=== PATIENT | female | born 1945 | race Caucasian/White ===

== ENCOUNTER → 2017-05-17 | Outpatient (CLI) | payer OTHER | END | disposition home or self-care (01) | LOC: OIH 13:08 | PROVIDERS: ATTEND Family Medicine | DX: I10 Essential (primary) hypertension (principal) | CPT/HCPCS: 71046 ==

== ENCOUNTER → 2017-06-03 | Outpatient (CLI) | payer OTHER | END | disposition home or self-care (01) | LOC: RAH 13:10 | PROVIDERS: ATTEND Family Medicine | DX: Z12.31 Encounter for screening mammogram for malignant neoplasm of breast (principal) | CPT/HCPCS: 77067 ==

== ENCOUNTER → 2018-05-09 | Outpatient (CLI) | payer OTHER | END | disposition home or self-care (01) | LOC: OIH 14:58 | PROVIDERS: ATTEND Family Medicine | DX: I10 Essential (primary) hypertension (principal); I70.0 Atherosclerosis of aorta | CPT/HCPCS: 71046 ==

== ENCOUNTER → 2018-05-11 | Outpatient (CLI) | payer OTHER ==
[~2018-05-11] MED LIST: IOHEXOL-350 50ML VIAL IV ONE
== END | disposition home or self-care (01) ==
LOC: RAH 13:48
PROVIDERS: ATTEND Otolaryngology Plastic Surgery within the Head & Neck
DX: H69.81 Other specified disorders of Eustachian tube, right ear (principal); H93.A1 Pulsatile tinnitus, right ear
CPT/HCPCS: 70482; Q9967

== ENCOUNTER → 2018-05-17 | Outpatient (CLI) | payer OTHER | END | disposition home or self-care (01) | LOC: RAH 09:49 | PROVIDERS: ATTEND Family Medicine | DX: I73.9 Peripheral vascular disease, unspecified (principal); I70.90 Unspecified atherosclerosis | CPT/HCPCS: 93925 ==

== ENCOUNTER → 2018-06-05 | Outpatient (CLI) | payer OTHER | END | disposition home or self-care (01) | LOC: RAH 10:14 | PROVIDERS: ATTEND Family Medicine | DX: Z12.31 Encounter for screening mammogram for malignant neoplasm of breast (principal) | CPT/HCPCS: 77067 ==

== ENCOUNTER → 2019-04-09 | Outpatient (CLI) | payer OTHER | END | disposition home or self-care (01) | LOC: OIH 11:22 | PROVIDERS: ATTEND Family Medicine | DX: I10 Essential (primary) hypertension (principal) | CPT/HCPCS: 71046 ==

== ENCOUNTER → 2019-04-20 | Outpatient (CLI) | payer OTHER | END | disposition home or self-care (01) | LOC: RAH 13:58 | PROVIDERS: ATTEND Family Medicine | DX: J43.2 Centrilobular emphysema (principal) | CPT/HCPCS: 71260; Q9967 ==

== ENCOUNTER 2019-06-14 09:30 | Inpatient (IN) | payer OTHER ==
[~2019-06-14] VITALS: Ht 167.6 cm; Wt 55.9 kg
[2019-06-14] VITALS (19 sets, daily range): BP systolic 110–160; BP diastolic 58–79
[~2019-06-14 09:30] MED LIST changes: +ALPR0.5T PO; +AMLO-257 PO; +ATOR40TA71 PO; +CALC600T15 PO; +FLUT1AER IH; -IOHEXOL-350 50ML VIAL IV ONE; +LORA10TA7 PO; +LYSI500T11 PO; +MULT-1367 PO
[2019-06-14] MEDS: CEFUROXIME SODIUM 1.5 GM VIAL IVP SCH ×2 (10:00→12:03)
[2019-06-14 10:18] LABS: BASOPHILS % (AUTO) 0.8 % (0.0-5.0); EOSINOPHILS % (AUTO) 1.3 % (0.0-8.0); HEMATOCRIT 41.4 % (36-48); LYMPHOCYTES % (AUTO) 23.3 % (21.0-51.0); MEAN CORPUSCULAR HEMOGLOBIN 30.3 pg (27.0-33.0); MEAN CORPUSCULAR HGB CONC 32.9 g/dL (32.0-36.0); MEAN CORPUSCULAR VOLUME 92.2 fL (79-99); MONOCYTES % (AUTO) 10.9 % (3.0-13.0); NEUTROPHILS % (AUTO) 63.6 % (40.0-77.0); PLATELET COUNT (AUTO) 209 K/uL (130-400); RED BLOOD CELL COUNT(AUTO) 4.49 MIL/uL (4.00-5.50); RED CELL DISTRIBUTION WIDTH 13.4 % (11.0-15.5); WHITE BLOOD COUNT (AUTO) 7.2 K/uL (4.8-10.8)
[2019-06-14 10:26] LABS: CREATININE 0.8 mg/dL (0.5-1.5); HEMOGLOBIN A1C 5.3 % (4.0-6.0); POTASSIUM 4.1 mmol/L (3.5-5.1)
[2019-06-14 10:29] LABS: INR 0.89 (0.85-1.15); PARTIAL THROMBOPLASTIN TIME 24.7 SEC (26.3-35.5); PROTHROMBIN TIME 9.7 SEC (9.6-11.6)
[2019-06-14 10:33] LABS: ALBUMIN 3.8 g/dL (3.5-5.0); BILIRUBIN,TOTAL 0.5 mg/dL (0.2-1.0); TOTAL PROTEIN, SERUM 7.1 g/dL (6.0-8.3)
[2019-06-14] MEDS ORDERED: GLYCOPYRROLATE 1 MG/5 ML SYRINGE ONE ×2 (11:00→13:15)
[2019-06-14] MEDS ORDERED: ONDANSETRON HCL 4 MG/2 ML VIAL ONE (11:00)
[2019-06-14] MEDS ORDERED: DEXAMETHASONE SOD PHOSPHATE 10MG/ML 1ML VIAL ONE (11:00)
[2019-06-14] MEDS ORDERED: LIDOCAINE PF 2% 5ML ABBOJECT ONE (11:00)
[2019-06-14] MEDS ORDERED: MIDAZOLAM HCL 1 MG/ML 2ML VIAL ONE (11:01)
[2019-06-14] MEDS ORDERED: FENTANYL CITRATE PF 50 MCG/1 ML 2ML VIAL ONE (11:01)
[2019-06-14] MEDS ORDERED: NEOSTIGMINE 5MG/5ML SYR IV ONE (11:01)
[2019-06-14] MEDS ORDERED: ROCURONIUM 10MG/1ML SYR 10 MG/ML ML ONE (11:01)
[2019-06-14] MEDS ORDERED: PROPOFOL 10 MG/ML 20ML VIAL IV ONE (11:01)
[2019-06-14] MEDS ORDERED: SODIUM CHLORIDE 0.9% 1000ML 1,000 ML IV ONE (11:22)
[2019-06-14] MEDS ORDERED: SODIUM CHLORIDE 0.9% 10 ML VIAL ONE (11:22)
[2019-06-14] MEDS ORDERED: CEFAZOLIN SODIUM 1 GM VIAL ONE (12:02)
[2019-06-14] MEDS ORDERED: ROPIVACAINE 0.5% 5MG/ML 30ML IJ ONE (12:02)
[2019-06-14] MEDS ORDERED: EPHEDRINE SULFATE 50 MG/ML AMPULE ONE (12:32)
[2019-06-14] MEDS ORDERED: LORATADINE 10 MG TABLET PO PRN (12:45)
[2019-06-14] MEDS ORDERED: Q-PUMP 1 EACH IRRIG SCH (13:30)
[2019-06-14] MEDS ORDERED: MEPERIDINE-PF 25 MG/ML SYG ONE ×2 (13:51→14:01)
[2019-06-14] MEDS: TRAMADOL HCL 50 MG TABLET PO PRN ×2 (17:22→23:52)
[2019-06-14] MEDS: BUDESONIDE 0.5 MG/2 ML INH IH SCH (18:35)
[2019-06-14] MEDS: ALBUTEROL SULFATE 0.083% 2.5 MG/3 ML INH IH SCH ×2 (18:35→23:58)
--- NOTE | 2019-06-14 20:00 | NUR ---
STATUS PT AAOX3 LYING IN BED. BREATHING REGULAR AND UNLABORED ON 2 L NC. PATIENT SPO2 99%. NSR. BP WNL. ASSESSMENT COMPLETED SINGLE CHEST TUBE TO LEFT SIDE. SANGUINEOUS DRAINAGE NOTED. SUCTION INITIATED. PAIN PUMP NOTED. SMALL INTERMITTENT AIR LEAK NOTED ON EXHALATION. NO CREPITUS PALPATED. NO ACUTE SIGNS OR SYMPTOMS OF DISTRESS NOTED. CALL LIGHT IN REACH
[2019-06-14] MEDS: ATORVASTATIN CALCIUM 40 MG TABLET PO SCH (21:01)
[2019-06-14] MEDS: CEFAZOLIN SODIUM 1 GM VIAL IVP SCH (21:01)
[2019-06-14] MEDS: ONDANSETRON HCL 4 MG/2 ML VIAL IVP PRN (21:52)
[2019-06-15] VITALS (9 sets, daily range): BP systolic 101–192; BP diastolic 59–90
[2019-06-15] MEDS: ONDANSETRON HCL 4 MG/2 ML VIAL IVP PRN ×2 (02:55→11:58)
[2019-06-15 04:01] LABS: HEMATOCRIT 38.3 % (36-48); MEAN CORPUSCULAR HEMOGLOBIN 30.6 pg (27.0-33.0); MEAN CORPUSCULAR HGB CONC 33.2 g/dL (32.0-36.0); MEAN CORPUSCULAR VOLUME 92.3 fL (79-99); PLATELET COUNT (AUTO) 208 K/uL (130-400); RED BLOOD CELL COUNT(AUTO) 4.15 MIL/uL (4.00-5.50); RED CELL DISTRIBUTION WIDTH 13.3 % (11.0-15.5); WHITE BLOOD COUNT (AUTO) 11.8 K/uL (4.8-10.8)
[2019-06-15 04:14] LABS: CREATININE 0.6 mg/dL (0.5-1.5); POTASSIUM 3.9 mmol/L (3.5-5.1)
[2019-06-15] MEDS: CEFAZOLIN SODIUM 1 GM VIAL IVP SCH ×2 (04:47→11:57)
[2019-06-15] MEDS: TRAMADOL HCL 50 MG TABLET PO PRN ×3 (05:41→21:52)
[2019-06-15] MEDS: BUDESONIDE 0.5 MG/2 ML INH IH SCH ×2 (06:24→19:57)
[2019-06-15] MEDS: ALBUTEROL SULFATE 0.083% 2.5 MG/3 ML INH IH SCH ×3 (06:24→19:40)
--- NOTE | 2019-06-15 07:30 | NUR ---
OOB TO CHAIR. ATTEMPTED TO GET PATIENT OUT OF BED TO CHAIR. ASSIST X3 WITH BRADLEY RN AND DEJON, PCP. PATIENT COMPLAINT OF DIZZINESS AND NAUSEA. PATIENT HAD CREAM COLORED EMESIS. PATIENT RETURNED TO BED, POSITIONED TO COMFORT.
--- NOTE | 2019-06-15 08:00 | NUR ---
TRANSFER REPORT GIVEN TO KARYNA SUTTON. PATIENT TRANSFERRED TO ROOM 429 VIA BED. CHEST TUBE SITE, LEVEL AND INTERMITTENT BUBBLING ON EXHALATION NOTED BY RECEIVING RN. PATIENT AAO X3 BREATHING REGULAR AND UNLABORED ON 2L NASAL CANNULA. NOS SIGNS OR SYMPTOMS OF DISTRESS NOTED. CALL LIGHT AND ROOM PHONE IN REACH. BREAKFAST PLACED ON BEDSIDE TABLE.
[2019-06-15] MEDS: LYSINE 500 MG PO SCH (09:00)
[2019-06-15] MEDS: CALCIUM CARBONATE 500 MG TABLET PO SCH (09:22)
[2019-06-15] MEDS: AMLODIPINE BESYLATE 5 MG TAB PO SCH (09:22)
[2019-06-15] MEDS: MULTIVITAMIN TABLET PO SCH (09:22)
[2019-06-15] MEDS: CEFUROXIME SODIUM 1.5 GM VIAL IVP SCH (10:12)
[2019-06-15] MEDS ORDERED: PROMETHAZINE HCL 25 MG/ML 1ML AMPULE IM PRN (12:45)
[2019-06-15] MEDS: SODIUM CHLORIDE 0.9% 1000ML 1,000 ML IV SCH (13:29)
--- NOTE | 2019-06-15 15:05 | NUR ---
INITIAL SW spoke with patient. Patient lives with spouse, Brock Chowdary, . No home services. DME: [facility]. Patient is able to complete ADL's independently and drives. PCP is Dr. Patrick Banks. Pharmacy is [facility] located on [facility]. DCP is home. Addendum: 06/15/19 at 1506 by TANIA FERNANDES SS Amended: Links added.
[2019-06-15] MEDS ORDERED: LOSARTAN 100 MG TABLET PO SCH (18:00)
--- NOTE | 2019-06-15 19:50 | NUR ---
PM Assessment Received pt with NS at 85cc/hr infusing well, chest tube connected to wall suction, Q pump in place at 10cc/hr, surgical site noted with small amount of drainage, marked, routine assessment done, plan of care discuss, aware on daily CXR, per pt c/o of inability to empty her bladder well at this time. Stated initially was able to void well but from 1500 start to have minimal urine output. Pt made aware that I will do a bladder scan depending on the outcome, then I will notify MD for a possible re-insertion of the Alvarez catheter, agreed. Pt also reminded to continue using the IS, demonstrated how to do it as pt claimed no one had told her anything about it, return demonstrated, did 750 x 10. Pt encourage to do it every hour while awake, stated she will try, aware of it's importance. Pt also made aware if no more N/V, then her diet will be progress to regular.
--- NOTE | 2019-06-15 21:10 | NUR ---
Re: Bladder scan 983 Dr. Quigley page & called back regarding problem of urinary retention, bladder scan outcome 983, order received to re-insert FC, pt notified, explained procedure, done aseptically obtain 1200 clear yellow urine.
[2019-06-15] MEDS: ATORVASTATIN CALCIUM 40 MG TABLET PO SCH (21:46)
[2019-06-16] MEDS: ALBUTEROL SULFATE 0.083% 2.5 MG/3 ML INH IH SCH ×5 (00:44→23:05)
[2019-06-16] MEDS: SODIUM CHLORIDE 0.9% 1000ML 1,000 ML IV SCH ×2 (01:36→12:17)
[2019-06-16 03:43] VITALS: BP 146/84
[2019-06-16] MEDS: BUDESONIDE 0.5 MG/2 ML INH IH SCH ×2 (06:28→18:46)
[2019-06-16 07:30] VITALS: BP 152/78
[2019-06-16] MEDS: TRAMADOL HCL 50 MG TABLET PO PRN ×2 (07:49→14:41)
[2019-06-16] MEDS: CEFUROXIME SODIUM 1.5 GM VIAL IVP SCH (09:00)
[2019-06-16] MEDS: LYSINE 500 MG PO SCH (09:00)
[2019-06-16 09:24] LABS: HEMATOCRIT 35.7 % (36-48); MEAN CORPUSCULAR HEMOGLOBIN 30.4 pg (27.0-33.0); MEAN CORPUSCULAR HGB CONC 32.8 g/dL (32.0-36.0); MEAN CORPUSCULAR VOLUME 92.7 fL (79-99); PLATELET COUNT (AUTO) 197 K/uL (130-400); RED BLOOD CELL COUNT(AUTO) 3.85 MIL/uL (4.00-5.50); RED CELL DISTRIBUTION WIDTH 13.8 % (11.0-15.5); WHITE BLOOD COUNT (AUTO) 11.8 K/uL (4.8-10.8)
[2019-06-16 09:41] LABS: CREATININE 0.7 mg/dL (0.5-1.5); POTASSIUM 3.5 mmol/L (3.5-5.1)
[2019-06-16] MEDS: LOSARTAN 100 MG TABLET PO SCH (09:41)
[2019-06-16] MEDS: CALCIUM CARBONATE 500 MG TABLET PO SCH (09:41)
[2019-06-16] MEDS: MULTIVITAMIN TABLET PO SCH (09:41)
[2019-06-16] MEDS: AMLODIPINE BESYLATE 5 MG TAB PO SCH (09:41)
[2019-06-16] MEDS ORDERED: KETOROLAC TROMETHAMINE 30MG/ML IV SCH (09:45)
--- NOTE | 2019-06-16 09:48 | NUR ---
DR BIANCHI ROUNDED ON PATIENT ORDERERS RECEIVED FOR CMP IN AM ORDERS PLACED Addendum: 06/16/19 at 4 by SEAN CASTILLO RN RN DR BIANCHI ASKED ABOUT DRESSSING CHANGE HE STATED WILL LOOK AT DRESSING CHANGE TOMORROW
[2019-06-16 11:30] VITALS: BP 140/76
--- NOTE | 2019-06-16 11:55 | NUR ---
DR GREEN ROUNDED ON PATIENT ORDERS RECEIVED FOR CMP IN AM ORDERS PLACED
[2019-06-16] MEDS: KETOROLAC TROMETHAMINE 15MG/ML IV SCH ×2 (14:39→22:56)
[2019-06-16 15:30] VITALS: BP 128/57
[2019-06-16 20:00] VITALS: BP 134/58
[2019-06-16] MEDS: ATORVASTATIN CALCIUM 40 MG TABLET PO SCH (22:44)
[2019-06-17 04:03] VITALS: BP 138/66
[2019-06-17 04:51] LABS: ALBUMIN 2.6 g/dL (3.5-5.0); BILIRUBIN,TOTAL 0.4 mg/dL (0.2-1.0); CREATININE 0.6 mg/dL (0.5-1.5); POTASSIUM 3.3 mmol/L (3.5-5.1); TOTAL PROTEIN, SERUM 5.7 g/dL (6.0-8.3)
[2019-06-17] MEDS: ALBUTEROL SULFATE 0.083% 2.5 MG/3 ML INH IH SCH ×4 (06:12→23:54)
[2019-06-17] MEDS: BUDESONIDE 0.5 MG/2 ML INH IH SCH ×2 (06:13→19:06)
[2019-06-17] MEDS: KETOROLAC TROMETHAMINE 15MG/ML IV SCH ×2 (07:09→14:05)
--- NOTE | 2019-06-17 07:49 | NUR ---
INFORMED DR. BIANCHI THAT PATIENT'S RHYTHM CHANGED TO AFIB AND NOW RVR AT 150'S. ORDERED TO START AMIODARONE DRIP.
[2019-06-17 08:00] VITALS: BP 145/78
[2019-06-17] MEDS ORDERED: AMIODARONE HCL 900 MG in DEXTROSE 5%-WATER 500 ML IV SCH (08:00)
[2019-06-17] MEDS ORDERED: POTASSIUM CHLORIDE 10% ELIXIR 20 MEQ/15 ML UDCUP PO PRN (08:00)
[2019-06-17] MEDS ORDERED: LIDOCAINE HCL-MPF 1% 2ML VIAL IV PRN (08:00)
[2019-06-17] MEDS ORDERED: AMIODARONE HCL 450 MG in DEXTROSE 5%-WATER 250 ML IV SCH (08:00)
[2019-06-17] MEDS ORDERED: AMIODARONE HCL 360 MG in DEXTROSE 5%-WATER 200 ML IV SCH (08:00)
[2019-06-17] MEDS ORDERED: POTASSIUM CHLORIDE 20MEQ/100ML 100 ML IV PRN (08:00)
[2019-06-17] MEDS: AMIODARONE HCL 150 MG in DEXTROSE 5%-WATER 100 ML IV SCH (08:17)
--- NOTE | 2019-06-17 08:17 | NUR ---
AMIODARONE PROTOCOL STARTED ORDERED. TELE CURRENTLY READS AFIB 140-150'S.
[2019-06-17] MEDS: LYSINE 500 MG PO SCH (09:00)
[2019-06-17] MEDS: AMLODIPINE BESYLATE 5 MG TAB PO SCH (09:17)
[2019-06-17] MEDS: MULTIVITAMIN TABLET PO SCH (09:17)
[2019-06-17] MEDS: LOSARTAN 100 MG TABLET PO SCH (09:17)
[2019-06-17] MEDS: CALCIUM CARBONATE 500 MG TABLET PO SCH (09:17)
--- NOTE | 2019-06-17 09:19 | NUR ---
INFORMED DR. GREEN THAT PATIENT WAS STARTED ON AMIODARONE DRIP ORDERED BY DR. BIANCHI. ORDERED ECHO AND MG LEVEL. I ALSO OBTAINED ORDER TO REPLACE MAGNESIUM IF LESS THAN 2.0
[2019-06-17] MEDS: POTASSIUM CHLORIDE 20 MEQ ERTAB PO PRN ×3 (09:33→14:03)
[2019-06-17] MEDS ORDERED: MAGNESIUM 2GM PREMIX 50ML 50 ML IV SCH (10:30)
[2019-06-17 12:00] VITALS: BP 102/57
--- NOTE | 2019-06-17 12:45 | NUR ---
NURSE SOILA. Addendum: 06/17/19 at 1246 by GERALD MCKINNON PT Amended: Links added.
[2019-06-17] MEDS: METOPROLOL TARTRATE 1 MG/ML 5ML VIAL IV SCH (13:48)
[2019-06-17 16:00] VITALS: BP 110/62
[2019-06-17] MEDS: ATORVASTATIN CALCIUM 40 MG TABLET PO SCH (20:06)
[2019-06-17] MEDS: METOPROLOL TARTRATE 25 MG TAB PO SCH (20:06)
[2019-06-17] MEDS: DOCUSATE SODIUM 100 MG CAP PO SCH (20:06)
[2019-06-17 20:37] VITALS: BP 126/70
[2019-06-17] MEDS ORDERED: LORAZEPAM 2 MG TABLET PO PRN (23:45)
[2019-06-17 23:46] VITALS: BP 150/75
[2019-06-18] MEDS: BISACODYL 5 MG TABLET.DR PO PRN (00:09)
[2019-06-18 03:54] VITALS: BP 118/51
[2019-06-18 04:06] LABS: BASOPHILS % (AUTO) 0.2 % (0.0-5.0); EOSINOPHILS % (AUTO) 1.9 % (0.0-8.0); MEAN CORPUSCULAR HEMOGLOBIN 29.7 pg (27.0-33.0); MEAN CORPUSCULAR HGB CONC 32.5 g/dL (32.0-36.0); MEAN CORPUSCULAR VOLUME 91.4 fL (79-99); MONOCYTES % (AUTO) 10.3 % (3.0-13.0); NEUTROPHILS % (AUTO) 72.2 % (40.0-77.0); PLATELET COUNT (AUTO) 184 K/uL (130-400); RED CELL DISTRIBUTION WIDTH 13.6 % (11.0-15.5); WHITE BLOOD COUNT (AUTO) 10.3 K/uL (4.8-10.8)
[2019-06-18 04:29] LABS: ALBUMIN 2.4 g/dL (3.5-5.0); BILIRUBIN,TOTAL 0.4 mg/dL (0.2-1.0); CREATININE 0.6 mg/dL (0.5-1.5); POTASSIUM 3.4 mmol/L (3.5-5.1); TOTAL PROTEIN, SERUM 5.4 g/dL (6.0-8.3)
[2019-06-18] MEDS: BUDESONIDE 0.5 MG/2 ML INH IH SCH ×2 (07:09→19:05)
[2019-06-18] MEDS: ALBUTEROL SULFATE 0.083% 2.5 MG/3 ML INH IH SCH ×4 (07:09→23:39)
[2019-06-18 07:30] VITALS: BP 120/64
[2019-06-18] MEDS: AMIODARONE HCL 150 MG in DEXTROSE 5%-WATER 100 ML IV SCH (08:00)
[2019-06-18] MEDS: LYSINE 500 MG PO SCH (09:00)
[2019-06-18] MEDS: LOSARTAN 100 MG TABLET PO SCH (09:02)
[2019-06-18] MEDS: DOCUSATE SODIUM 100 MG CAP PO SCH ×2 (09:02→19:55)
[2019-06-18] MEDS: CALCIUM CARBONATE 500 MG TABLET PO SCH (09:03)
[2019-06-18] MEDS: AMLODIPINE BESYLATE 5 MG TAB PO SCH (09:03)
[2019-06-18] MEDS: METOPROLOL TARTRATE 25 MG TAB PO SCH ×2 (09:03→19:55)
[2019-06-18] MEDS: MULTIVITAMIN TABLET PO SCH (09:03)
[2019-06-18 11:00] VITALS: BP 132/62
[2019-06-18] MEDS: POTASSIUM CHLORIDE 20 MEQ ERTAB PO PRN ×2 (11:17→13:07)
[2019-06-18] MEDS: METOPROLOL TARTRATE 1 MG/ML 5ML VIAL IV SCH (13:00)
[2019-06-18 16:00] VITALS: BP 127/70
[2019-06-18] MEDS: POLYETHYLENE GLYCOL 3350 17 GM POWD.PACK PO SCH (18:36)
[2019-06-18] MEDS: TRAMADOL HCL 50 MG TABLET PO PRN (18:55)
[2019-06-18 19:32] VITALS: BP 150/80
[2019-06-18] MEDS: ATORVASTATIN CALCIUM 40 MG TABLET PO SCH (19:55)
[2019-06-18] MEDS: AMIODARONE HCL 200 MG TABLET PO SCH (19:56)
[2019-06-18] MEDS: ACETAMINOPHEN 325 MG TAB PO PRN (19:57)
[2019-06-18] MEDS ORDERED: LORAZEPAM 1 MG TABLET PO PRN (21:00)
[2019-06-18] MEDS ORDERED: AMIODARONE HCL 200 MG TABLET PO SCH (21:00)
--- NOTE | 2019-06-18 21:00 | NUR ---
NEW ORDER FOR ATIVAN 1MG PER DR. GREEN. PT STATES DIFFICULTY SLEEPING AND HAD ATIVAN DAY PRIOR 2MG. REQUESTED HALF DOSE. PT SR. DOES STATE CHEST PAIN DUE TO CHEST TUBE. STATED AMBULATING AND STRAINING IN ATTEMPT TO HAVE A BM ON BEDSIDE COMMODE. PT CHEST TUBE VERIFIED, AND IT HAS POSSIBLE AIR LEAK.
[2019-06-18] MEDS: NYSTATIN 100000 UNIT/ML 5ML UDCUP PO SCH (21:27)
[2019-06-18 23:30] VITALS: BP 126/67
[2019-06-19 04:13] VITALS: BP 114/61
--- NOTE | 2019-06-19 05:32 | NUR ---
PT HAS VOIDED SMALL AMOUNT ABOUT 50ML. STATES NO PAIN TO BLADDER AREA, HAS VOIDED X2 IN SMALL AMOUNTS. STATES WILL NOTIFY US IF SHE STARTS TO HAVE DISCOMFORT.
[2019-06-19 05:52] LABS: MEAN CORPUSCULAR HEMOGLOBIN 29.3 pg (27.0-33.0); MEAN CORPUSCULAR HGB CONC 32.1 g/dL (32.0-36.0); MEAN CORPUSCULAR VOLUME 91.4 fL (79-99); PLATELET COUNT (AUTO) 224 K/uL (130-400); RED BLOOD CELL COUNT(AUTO) 3.72 MIL/uL (4.00-5.50); RED CELL DISTRIBUTION WIDTH 13.4 % (11.0-15.5); WHITE BLOOD COUNT (AUTO) 7.9 K/uL (4.8-10.8)
[2019-06-19 06:16] LABS: CREATININE 0.6 mg/dL (0.5-1.5); POTASSIUM 3.7 mmol/L (3.5-5.1)
[2019-06-19] MEDS: ALBUTEROL SULFATE 0.083% 2.5 MG/3 ML INH IH SCH ×4 (06:46→23:42)
[2019-06-19] MEDS: BUDESONIDE 0.5 MG/2 ML INH IH SCH ×2 (06:46→18:38)
[2019-06-19 07:13] LABS: EOSINOPHILS % (MANUAL) 1 % (1-6); LYMPHOCYTES % (MANUAL) 29 % (22-44); MAN.DIFF COMMENT-IMPRESSION MANUAL DIFFERENTIAL; MONOCYTES % (MANUAL) 9 % (2-9); SEGMENTED NEUTROPHILS % 61 % (40-70)
[2019-06-19 07:14] LABS: PLATELET MORPHOLOGY COMMENT ADEQUATE
[2019-06-19] MEDS: AMIODARONE HCL 150 MG in DEXTROSE 5%-WATER 100 ML IV SCH (07:16)
[2019-06-19 07:30] VITALS: BP 122/78
[2019-06-19] MEDS: TRAMADOL HCL 50 MG TABLET PO PRN ×2 (08:37→21:52)
[2019-06-19] MEDS: DOCUSATE SODIUM 100 MG CAP PO SCH ×2 (08:39→20:39)
[2019-06-19] MEDS: LOSARTAN 100 MG TABLET PO SCH (08:39)
[2019-06-19] MEDS: METOPROLOL TARTRATE 25 MG TAB PO SCH ×2 (08:40→20:39)
[2019-06-19] MEDS: CALCIUM CARBONATE 500 MG TABLET PO SCH (08:41)
[2019-06-19] MEDS: AMLODIPINE BESYLATE 5 MG TAB PO SCH (08:41)
[2019-06-19] MEDS: MULTIVITAMIN TABLET PO SCH (08:41)
[2019-06-19] MEDS: POLYETHYLENE GLYCOL 3350 17 GM POWD.PACK PO SCH (08:41)
[2019-06-19] MEDS: AMIODARONE HCL 200 MG TABLET PO SCH ×2 (08:42→20:39)
[2019-06-19] MEDS: LYSINE 500 MG PO SCH (08:57)
[2019-06-19] MEDS: ENOXAPARIN SODIUM 30 MG/0.3 ML SQ SCH (09:00)
[2019-06-19] MEDS: NYSTATIN 100000 UNIT/ML 5ML UDCUP PO SCH ×4 (10:24→20:39)
[2019-06-19] MEDS: GABAPENTIN 300 MG CAPSULE PO SCH ×2 (10:48→20:39)
[2019-06-19 11:00] VITALS: BP 124/72
[2019-06-19] MEDS: METOPROLOL TARTRATE 1 MG/ML 5ML VIAL IV SCH (13:00)
[2019-06-19 16:00] VITALS: BP 110/57
[2019-06-19 20:00] VITALS: BP 120/77
[2019-06-19] MEDS: ATORVASTATIN CALCIUM 40 MG TABLET PO SCH (20:39)
[2019-06-19] MEDS ORDERED: DIPHENHYDRAMINE HCL 25 MG CAPSULE PO PRN (21:00)
[2019-06-19] MEDS: ACETAMINOPHEN 325 MG TAB PO PRN (22:23)
[2019-06-20] VITALS (7 sets, daily range): BP systolic 107–135; BP diastolic 52–67
[2019-06-20] MEDS: ALBUTEROL SULFATE 0.083% 2.5 MG/3 ML INH IH SCH ×4 (06:40→23:07)
[2019-06-20] MEDS: BUDESONIDE 0.5 MG/2 ML INH IH SCH ×2 (06:46→18:52)
[2019-06-20] MEDS: ACETAMINOPHEN 325 MG TAB PO PRN ×2 (07:00→17:53)
[2019-06-20] MEDS: AMIODARONE HCL 200 MG TABLET PO SCH ×2 (08:20→22:11)
[2019-06-20] MEDS: CALCIUM CARBONATE 500 MG TABLET PO SCH (08:20)
[2019-06-20] MEDS: GABAPENTIN 300 MG CAPSULE PO SCH ×2 (08:21→22:11)
[2019-06-20] MEDS: POLYETHYLENE GLYCOL 3350 17 GM POWD.PACK PO SCH (08:21)
[2019-06-20] MEDS: LOSARTAN 100 MG TABLET PO SCH (08:21)
[2019-06-20] MEDS: MULTIVITAMIN TABLET PO SCH (08:21)
[2019-06-20] MEDS: DOCUSATE SODIUM 100 MG CAP PO SCH ×2 (08:21→22:10)
[2019-06-20] MEDS: AMLODIPINE BESYLATE 5 MG TAB PO SCH (08:22)
[2019-06-20] MEDS: METOPROLOL TARTRATE 25 MG TAB PO SCH ×2 (08:22→22:11)
[2019-06-20] MEDS: TRAMADOL HCL 50 MG TABLET PO PRN ×2 (08:25→17:54)
[2019-06-20] MEDS: LYSINE 500 MG PO SCH (08:25)
[2019-06-20] MEDS: NYSTATIN 100000 UNIT/ML 5ML UDCUP PO SCH ×4 (08:26→21:00)
[2019-06-20] MEDS: ENOXAPARIN SODIUM 30 MG/0.3 ML SQ SCH (09:00)
[2019-06-20] MEDS: METOPROLOL TARTRATE 1 MG/ML 5ML VIAL IV SCH (12:44)
--- NOTE | 2019-06-20 14:00 | NUR ---
NOTE DR BRIDGES CAME BY WHILE I WAS AT [facility] AND I FOUND ORDERS FOR CLAMPING CHEST TUBE AND ENCOURAGE PATIENT TO AMBULATE WITH P.T. TID. I HAVE INFORMED P.T. AND THEY WILL START BEING MORE AGGRESSIVE WITH THERAPY. SHE DOES NOT APPEAR TO BE SOB. SHE IS DOING HER I.S. AND SHE IS GETTING HIGH 1250CC MAX. C/O LEFT CHEST PAIN TO TUBE INSERTION SITE MEDICATED FOR PAIN EARLIER THIS AM.
--- NOTE | 2019-06-20 15:41 | NUR ---
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 Pt tolerating Regular diet order with no report of GI distress, Po in take at 75. Pt is low BMI for age (BMI 19.9). Recommend Ensure nutritional supplementation BID . RD to continue to monitor. Please notify as additional nutrition concerns arise. Thank you. Addendum: 06/20/19 at [address] Amended: Links added.
[2019-06-20] MEDS: BISACODYL 5 MG TABLET.DR PO PRN (22:11)
[2019-06-20] MEDS: ATORVASTATIN CALCIUM 40 MG TABLET PO SCH (22:11)
[2019-06-21 04:02] VITALS: BP 111/63
[2019-06-21] MEDS: TRAMADOL HCL 50 MG TABLET PO PRN ×2 (05:26)
[2019-06-21] MEDS: ALBUTEROL SULFATE 0.083% 2.5 MG/3 ML INH IH SCH ×4 (06:30→23:18)
[2019-06-21] MEDS: BUDESONIDE 0.5 MG/2 ML INH IH SCH ×2 (06:30→18:35)
[2019-06-21 08:00] VITALS: BP 134/53
--- NOTE | 2019-06-21 08:20 | NUR ---
CT and qpump extension removed; site cleansed, suture in place, and new dressing applied; patient resting comfortably in bed with no complaints at this time
[2019-06-21] MEDS: ENOXAPARIN SODIUM 30 MG/0.3 ML SQ SCH (09:00)
[2019-06-21] MEDS: LYSINE 500 MG PO SCH (09:00)
[2019-06-21] MEDS: CALCIUM CARBONATE 500 MG TABLET PO SCH (09:36)
[2019-06-21] MEDS: MULTIVITAMIN TABLET PO SCH (09:36)
[2019-06-21] MEDS: NYSTATIN 100000 UNIT/ML 5ML UDCUP PO SCH ×4 (09:36→21:03)
[2019-06-21] MEDS: DOCUSATE SODIUM 100 MG CAP PO SCH ×2 (09:36→21:01)
[2019-06-21] MEDS: AMLODIPINE BESYLATE 5 MG TAB PO SCH (09:36)
[2019-06-21] MEDS: AMIODARONE HCL 200 MG TABLET PO SCH ×2 (09:36→21:03)
[2019-06-21] MEDS: METOPROLOL TARTRATE 25 MG TAB PO SCH ×2 (09:36→21:02)
[2019-06-21] MEDS: LOSARTAN 100 MG TABLET PO SCH (09:36)
[2019-06-21] MEDS: POLYETHYLENE GLYCOL 3350 17 GM POWD.PACK PO SCH (09:36)
[2019-06-21] MEDS: GABAPENTIN 300 MG CAPSULE PO SCH ×2 (09:36→21:02)
[2019-06-21] MEDS: ONDANSETRON HCL 4 MG/2 ML VIAL IVP PRN (09:42)
[2019-06-21] MEDS: METOPROLOL TARTRATE 1 MG/ML 5ML VIAL IV SCH (11:44)
[2019-06-21 11:55] VITALS: BP 107/63
--- NOTE | 2019-06-21 15:12 | NUR ---
[id number] patient signed IM Letter, I faxed IM Letter to [phone] and placed in chart under consent tab.
[2019-06-21 16:00] VITALS: BP 109/58
[2019-06-21 19:59] VITALS: BP 126/63
[2019-06-21] MEDS: ATORVASTATIN CALCIUM 40 MG TABLET PO SCH (21:02)
[2019-06-21 23:05] VITALS: BP 135/61
[2019-06-22] MEDS: TRAMADOL HCL 50 MG TABLET PO PRN ×2 (03:35→17:32)
[2019-06-22 03:51] VITALS: BP 123/68
[2019-06-22 04:03] LABS: HEMATOCRIT 34.2 % (36-48); MEAN CORPUSCULAR HEMOGLOBIN 29.7 pg (27.0-33.0); MEAN CORPUSCULAR HGB CONC 32.2 g/dL (32.0-36.0); MEAN CORPUSCULAR VOLUME 92.4 fL (79-99); RED BLOOD CELL COUNT(AUTO) 3.7 MIL/uL (4.00-5.50); RED CELL DISTRIBUTION WIDTH 13.2 % (11.0-15.5); WHITE BLOOD COUNT (AUTO) 8.2 K/uL (4.8-10.8)
[2019-06-22 04:15] LABS: CREATININE 0.6 mg/dL (0.5-1.5); POTASSIUM 4.3 mmol/L (3.5-5.1)
[2019-06-22] MEDS: BUDESONIDE 0.5 MG/2 ML INH IH SCH ×2 (06:11→18:37)
[2019-06-22] MEDS: ALBUTEROL SULFATE 0.083% 2.5 MG/3 ML INH IH SCH ×4 (06:11→23:30)
[2019-06-22 08:00] VITALS: BP 109/55
[2019-06-22] MEDS: LYSINE 500 MG PO SCH (09:00)
[2019-06-22] MEDS: POLYETHYLENE GLYCOL 3350 17 GM POWD.PACK PO SCH (09:02)
[2019-06-22] MEDS: CALCIUM CARBONATE 500 MG TABLET PO SCH (09:03)
[2019-06-22] MEDS: METOPROLOL TARTRATE 25 MG TAB PO SCH ×2 (09:03→20:42)
[2019-06-22] MEDS: LOSARTAN 100 MG TABLET PO SCH (09:03)
[2019-06-22] MEDS: GABAPENTIN 300 MG CAPSULE PO SCH ×2 (09:04→20:42)
[2019-06-22] MEDS: MULTIVITAMIN TABLET PO SCH (09:04)
[2019-06-22] MEDS: DOCUSATE SODIUM 100 MG CAP PO SCH ×2 (09:04→20:42)
[2019-06-22] MEDS: AMIODARONE HCL 200 MG TABLET PO SCH ×2 (09:04→20:42)
[2019-06-22] MEDS: NYSTATIN 100000 UNIT/ML 5ML UDCUP PO SCH ×4 (09:05→20:43)
[2019-06-22] MEDS: AMLODIPINE BESYLATE 5 MG TAB PO SCH (09:05)
[2019-06-22] MEDS: ENOXAPARIN SODIUM 30 MG/0.3 ML SQ SCH (09:06)
[2019-06-22] MEDS ORDERED: METO25 PO (09:27)
[2019-06-22] MEDS ORDERED: GABA-531 PO (09:27)
[2019-06-22] MEDS ORDERED: AMIO200T44 PO (09:27)
[2019-06-22] MEDS ORDERED: TRAM50TA4 PO (09:27)
[2019-06-22] MEDS ORDERED: LOSA100T2 PO (09:27)
[2019-06-22 12:09] VITALS: BP 118/57
[2019-06-22 16:00] VITALS: BP 114/62
[2019-06-22 20:09] VITALS: BP 149/71
[2019-06-22] MEDS: ATORVASTATIN CALCIUM 40 MG TABLET PO SCH (20:42)
[2019-06-22 23:49] VITALS: BP 141/70
[2019-06-23] MEDS: TRAMADOL HCL 50 MG TABLET PO PRN ×2 (00:21→20:46)
[2019-06-23 04:06] VITALS: BP 127/70
[2019-06-23] MEDS: BUDESONIDE 0.5 MG/2 ML INH IH SCH ×2 (06:26→18:23)
[2019-06-23] MEDS: ALBUTEROL SULFATE 0.083% 2.5 MG/3 ML INH IH SCH ×4 (06:26→23:12)
[2019-06-23 08:00] VITALS: BP 130/72
[2019-06-23] MEDS: AMIODARONE HCL 200 MG TABLET PO SCH ×2 (08:38→20:46)
[2019-06-23] MEDS: METOPROLOL TARTRATE 25 MG TAB PO SCH ×2 (08:38→20:45)
[2019-06-23] MEDS: NYSTATIN 100000 UNIT/ML 5ML UDCUP PO SCH ×4 (08:38→20:45)
[2019-06-23] MEDS: LOSARTAN 100 MG TABLET PO SCH (08:38)
[2019-06-23] MEDS: AMLODIPINE BESYLATE 5 MG TAB PO SCH (08:38)
[2019-06-23] MEDS: CALCIUM CARBONATE 500 MG TABLET PO SCH (08:38)
[2019-06-23] MEDS: MULTIVITAMIN TABLET PO SCH (08:38)
[2019-06-23] MEDS: POLYETHYLENE GLYCOL 3350 17 GM POWD.PACK PO SCH (08:39)
[2019-06-23] MEDS: DOCUSATE SODIUM 100 MG CAP PO SCH ×2 (08:39→20:52)
[2019-06-23] MEDS: ENOXAPARIN SODIUM 30 MG/0.3 ML SQ SCH (08:39)
[2019-06-23] MEDS: LYSINE 500 MG PO SCH (08:39)
[2019-06-23] MEDS: GABAPENTIN 300 MG CAPSULE PO SCH ×2 (08:44→20:45)
[2019-06-23 16:00] VITALS: BP 119/66
[2019-06-23 20:24] VITALS: BP 131/60
[2019-06-23] MEDS: ATORVASTATIN CALCIUM 40 MG TABLET PO SCH (20:45)
[2019-06-24 00:24] VITALS: BP 119/66
[2019-06-24 04:24] VITALS: BP 104/51
[2019-06-24] MEDS: BUDESONIDE 0.5 MG/2 ML INH IH SCH (06:22)
[2019-06-24] MEDS: ALBUTEROL SULFATE 0.083% 2.5 MG/3 ML INH IH SCH (06:22)
[2019-06-24] MEDS: TRAMADOL HCL 50 MG TABLET PO PRN (07:01)
[2019-06-24 08:00] VITALS: BP_SYST 110; BP_SYST 147; BP_DIAS 55; BP_DIAS 64
[2019-06-24] MEDS: LYSINE 500 MG PO SCH (09:00)
[2019-06-24] MEDS: POLYETHYLENE GLYCOL 3350 17 GM POWD.PACK PO SCH (09:00)
[2019-06-24] MEDS: GABAPENTIN 300 MG CAPSULE PO SCH (09:41)
[2019-06-24] MEDS: DOCUSATE SODIUM 100 MG CAP PO SCH (09:41)
[2019-06-24] MEDS: CALCIUM CARBONATE 500 MG TABLET PO SCH (09:41)
[2019-06-24] MEDS: LOSARTAN 100 MG TABLET PO SCH (09:41)
[2019-06-24] MEDS: METOPROLOL TARTRATE 25 MG TAB PO SCH (09:41)
[2019-06-24] MEDS: NYSTATIN 100000 UNIT/ML 5ML UDCUP PO SCH (09:41)
[2019-06-24] MEDS: MULTIVITAMIN TABLET PO SCH (09:42)
[2019-06-24] MEDS: AMLODIPINE BESYLATE 5 MG TAB PO SCH (09:42)
[2019-06-24] MEDS: AMIODARONE HCL 200 MG TABLET PO SCH (09:42)
[2019-06-24] MEDS: ENOXAPARIN SODIUM 30 MG/0.3 ML SQ SCH (09:43)
[2019-06-24 11:39] VITALS: BP 115/60
[2019-06-24 11:41] VITALS: BP 129/73
--- NOTE | 2019-06-24 11:52 | NUR ---
PT DISCHARGED HOME- PRINTED AND VERBAL DISCHARGE INSTRUCTION GIVEN. VERBALIZES UNDERSTANDING. TO CAR VIA WHEELCHAIR. IV CATH X 2 REMOVED INTACT. NO ACUTE DISTRESS NOTED. DRESSING TO BACK REMOVED/1 SUTURE REMOVED. INCISION CLEAN AND DRY/INTACT
== END 2019-06-24 12:06 | disposition home or self-care (01) | DRG 163 ==
LOC: DAHIP 09:30 → EDSTATUS 12:00 → DAHIP 14:27 → 4AH 06-15 08:21 → 4CH 06-18 06:33
PROVIDERS: ADMIT Thoracic Surgery (Cardiothoracic Vascular Surgery); ATTEND Thoracic Surgery (Cardiothoracic Vascular Surgery)
PROC: 0BTG0ZZ Resection of Left Upper Lung Lobe, Open Approach (ICD-10-PCS; principal; 2019-06-14 11:32)
DX: C34.12 Malignant neoplasm of upper lobe, left bronchus or lung (principal); J86.0 Pyothorax with fistula; I97.191 Other postprocedural cardiac functional disturbances following other surgery; J44.9 Chronic obstructive pulmonary disease, unspecified; E78.00 Pure hypercholesterolemia, unspecified; E78.5 Hyperlipidemia, unspecified; E83.42 Hypomagnesemia; E87.6 Hypokalemia; F17.200 Nicotine dependence, unspecified, uncomplicated; I10 Essential (primary) hypertension; Z79.899 Other long term (current) drug therapy; F41.9 Anxiety disorder, unspecified; Y83.8 Other surgical procedures as the cause of abnormal reaction of the patient, or of later complication, without mention of misadventure at the time of the procedure; Y82.8 Other medical devices associated with adverse incidents; Y92.89 Other specified places as the place of occurrence of the external cause
CPT/HCPCS: 36415; 71045; 71046; 80048; 80053; 82948; 83036; 83735; 85025; 85027; 85610; 85730; 86850; 86900; 86901; 86922; 88305; 88307; 88309; 88341; 88342; 88360; 93005; 93306; 94010; 94640; 94664; 97039; A4344; A7048; G0378; J0282; J0690; J0697; J1100; J1650; J1885; J2001; J2175; J2250; J2405; J2550; J2704; J2710; J2795; J3010; J3475; J3490; J7030; J7040; J7060; Q0163

== ENCOUNTER → 2019-08-06 | Outpatient (CLI) | payer OTHER | END | disposition home or self-care (01) | LOC: OIH 10:24 | PROVIDERS: ATTEND Family Medicine | DX: J44.9 Chronic obstructive pulmonary disease, unspecified (principal); J90 Pleural effusion, not elsewhere classified; J93.83 Other pneumothorax; C7A.1 Malignant poorly differentiated neuroendocrine tumors; I10 Essential (primary) hypertension; I70.0 Atherosclerosis of aorta ==